=== PATIENT | female | born 1985 | race Hispanic/Latino ===

== ENCOUNTER 2017-11-22 16:47 | Emergency (ER) | payer SELFPAY ==
[~2017-11-22] VITALS: Ht 152.4 cm; Wt 98.4 kg
[~2017-11-22 16:47] MED LIST: GLYBURIDE PO; NAPROSYN500 MG PO; NO MEDS; PRE-NATAL PO
[2017-11-22] MEDS ORDERED: METRONIDAZOL500 MG PO (18:31)
[2017-11-22] MEDS ORDERED: DIFLUCAN100 MG PO (18:31)
[2017-11-22 18:42] LABS: URINE BILIRUBIN - DIPSTICK NEGATIVE (NEGATIVE); URINE BLOOD DIPSTICK NEGATIVE (NEGATIVE); URINE COLOR YELLOW; URINE GLUCOSE - DIPSTICK >=1000 mg/dL (NEGATIVE); URINE KETONE NEGATIVE (NEGATIVE); URINE LEUK ESTERASE NEGATIVE (NEGATIVE); URINE NITRITE - DIPSTICK NEGATIVE (Negative); URINE PH 5.5 (4.5-8.0); URINE PROTEIN - DIPSTICK NEGATIVE (NEG-TRACE); URINE SPECIFIC GRAVITY >=1.030; URINE UROBILINOGEN - DIPSTICK 0.2 E.U./dL (0.2)
[2017-11-22 18:44] LABS: HCG SERUM/URINE (NEG/POS) NEGATIVE (NEGATIVE); URINE CLARITY CLEAR
[2017-11-22 19:06] VITALS: BP 130/75
== END 2017-11-22 19:33 | disposition home or self-care (01) | DRG 759 ==
LOC: ED 16:47
DX: B37.49 Other urogenital candidiasis (principal); E11.9 Type 2 diabetes mellitus without complications